=== PATIENT | female | born 1990 | race Caucasian/White ===

== ENCOUNTER → 2021-12-23 | Outpatient (CLI) | payer OTHER | END | disposition home or self-care (01) | LOC: LAB SHORT 18:05 | DX: N39.0 Urinary tract infection, site not specified (principal) | CPT/HCPCS: 87077; 87086; 87186 ==

== ENCOUNTER 2022-07-06 21:35 | Observation (INO) | payer OTHER ==
[~2022-07-06] VITALS: Ht 160 cm; Wt 58.3 kg
[2022-07-06 23:23] LABS: BASOPHILS ABSOLUTE AUTO 0.04 K/mm3 (0.00-0.23); BASOPHILS PERCENT AUTO 0 % (0-2); EOSINOPHILS ABSOLUTE AUTO 0.03 K/mm3 (0.00-0.68); EOSINOPHILS PERCENT AUTO 0 % (0-6); Hematocrit 39.4 % (33.0-51.0); Hemoglobin 13.4 g/dL (11.5-16.0); IMMATURE GRAN ABSOLUTE AUTO 0.05 K/mm3 (0.00-0.10); IMMATURE GRAN PERCENT AUTO 0 % (0-1); LYMPHOCYTES ABSOLUTE AUTO 1.09 K/mm3 (0.84-5.20); LYMPHOCYTES PERCENT AUTO 9 % (21-46); MONOCYTES ABSOLUTE AUTO 0.71 K/mm3 (0.16-1.47); MONOCYTES PERCENT AUTO 6 % (4-13); Mean Corpuscular HGB 30.1 pg (26.0-34.0); Mean Corpuscular Volume 89 fL (80-100); Mean Platelet Volume 10.6 fL (9.1-12.4); NEUTROPHILS ABSOLUTE AUTO 10.01 K/mm3 (1.96-9.15); NEUTROPHILS PERCENT AUTO 84 % (41-73); Platelet Count 282 K/mm3 (150-400); RDW Coefficient Variation 11.8 % (11.7-14.2); RDW Standard Deviation 37.3 fL (35.1-46.3); Red Blood Cell Count 4.45 M/mm3 (3.80-5.20); White Blood Cell Count 11.93 K/mm3 (4.00-11.30)
[2022-07-06 23:51] LABS: Magnesium, Blood 1.7 mg/dL (1.6-2.4)
[2022-07-06 23:57] LABS: PCO2 Venous 41.6 mmHg (38-42); pH Blood Venous 7.24 (7.34-7.37)
[2022-07-06 23:58] LABS: Bicarbonate Venous 16.8 mmol/L (24.0-30.0)
[2022-07-06 23:59] LABS: Base Excess Venous -9.8 mmol/L
[2022-07-07 00:19] LABS: Albumin, Blood 3.5 g/dL (3.4-5.0); Albumin/Globulin Ratio 0.9 (0.8-1.8); Beta-hydroxybutyrate 47.6 mg/dL (0.2-2.8); Bilirubin, Total 1.2 mg/dL (0.1-1.0); Bun/Creatinine Ratio 19.1 (12.0-20.0); Calcium, Blood 8.6 mg/dL (8.5-10.1); Creatinine, Blood 0.73 mg/dL (0.40-1.00); Globulin, Blood 3.7 g/dL (2.2-4.0); Phosphorus, Blood 2.5 mg/dL (2.5-4.9); Potassium, Blood 3.6 mmol/L (3.5-5.5); Total Protein, Blood 7.2 g/dL (6.4-8.2)
[2022-07-07 02:20] LABS: Bilirubin, Urine Neg (Neg); Blood, Urine 1+ (Neg); Glucose Qualitative, Urine 4+ (Neg); Ketones, Urine 4+ (Neg); Leukocyte Esterase, Urine Neg (Neg); Nitrite, Urine Neg (Neg); Protein, Urine 2+ (Neg); Urobilinogen, Urine NORM (Normal)
[2022-07-07 02:26] LABS: Appearance, Urine Hazy (Clear); Bacteria Many /hpf; Color, Urine Yellow (P-Yellow); Red Blood Cells, Urine 0-2 /hpf (0-2); Squamous Epithelial Cells Many /hpf (Few); Yeast/Fungi Urine Few /hpf
[2022-07-07 02:56] LABS: Base Excess Venous -13.4 mmol/L; PCO2 Venous 33.1 mmHg (38-42)
[2022-07-07 02:57] LABS: pH Blood Venous 7.24 (7.34-7.37)
--- NOTE | 2022-07-07 05:43 | NUR ---
ADMIT NOTE 31 YR OLD FEMALE AMITTED TO FLOOR FROM THE ED WITH ACUTE METABOLIC ACIDOSIS. QUIET. DEPRESSED AFFECT. ORIENTED TO USE OF CALL LIGHT. CALL LIGHT IN REACH
--- NOTE | 2022-07-07 05:54 | NUR ---
AFFECT DEPRESSED. PT VOICED SHE IS ON "ANTIDEPRESSANTS" AND MENTIONS "ZOLOFT 200 MG" DAILY. CALL LIGHT IN REACH
[2022-07-07] MEDS ORDERED: BASAGLAR K100 UNIT/1 SC (12:54)
[2022-07-07] MEDS ORDERED: HUMALOG KW100 UNIT/1 SC (12:55)
[2022-07-07] MEDS ORDERED: SERT100 PO (12:56)
[2022-07-07] MEDS ORDERED: ONDA4ODT MM (12:56)
[2022-07-07 14:09] LABS: Base Excess Venous -9.9 mmol/L; Bicarbonate Venous 16.6 mmol/L (24.0-30.0); PCO2 Venous 38.3 mmHg (38-42)
[2022-07-07 14:13] LABS: pH Blood Venous 7.26 (7.34-7.37)
--- NOTE | 2022-07-07 15:02 | NUR ---
CONTINUES TO REPORT HEADACHE DESPITE TYLENOL BUT REPORTS FEELING BETTER. DISCHARGE INSTRUCTIONS COMPLETED AND DISCUSSED WITH PT EXPRESSING UNDERSTANDING. SCRIPTS FAXED TO [facility]. TO [facility] VIA W/C.
== END 2022-07-07 14:22 | disposition home or self-care (01) ==
LOC: ER 21:35 → MEDS 21:36
PROVIDERS: Physician Assistant; Student in an Organized Health Care Education/Training Program; ADMIT Family Medicine
DX: E87.21 Acute metabolic acidosis (principal); E10.9 Type 1 diabetes mellitus without complications; J45.909 Unspecified asthma, uncomplicated; G43.909 Migraine, unspecified, not intractable, without status migrainosus; D72.829 Elevated white blood cell count, unspecified; F32.A Depression, unspecified; F41.9 Anxiety disorder, unspecified; Z88.5 Allergy status to narcotic agent; Z88.6 Allergy status to analgesic agent; Z79.4 Long term (current) use of insulin
CPT/HCPCS: 36415; 71046; 80053; 81001; 81025; 82010; 82803; 82947; 83036; 83605; 83735; 84100; 85025; 87086; 93005; 93010; 96361; A9270; G0378; J1790; J1815; J2405; J7030